=== PATIENT | male | born 1995 | race African-American/Black ===

== ENCOUNTER 2021-01-20 14:42 | Emergency (ER) | payer OTHER, SELFPAY ==
--- NOTE | ~2021-01-20 | XR_ITS ---
XR forearm LT 2V 01/20/2021 16:54 INDICATION: Dog bite left forearm PROCEDURE: 2 views left forearm COMPARISON: No prior studies for comparison. FINDINGS: Fracture, dislocation or subluxation is not identified. There is soft tissue gas along the radial aspect of the proximal forearm. No foreign bodies identified. The soft tissues appear within n ormal limits. No foreign bodies are identified. IMPRESSION: 1: NO ACUTE BONE OR JOINT ABNORMALITY IDENTIFIED. Reviewed, dictated and finalized at location B.
[2021-01-20 15:37] VITALS: BP 151/79; PULSE 92; RESP 16; TEMP 37.1; O2SAT 100
--- NOTE | 2021-01-20 16:57 | ED.GENADULT ---
HPI - General Adult General Chief complaint: Animal Bite Stated complaint: dog bite Time Seen by Provider: 01/20/21 16:36 Source: patient Mode of arrival: ambulatory Limitations: no limitations History of Present Illness HPI narrative: Patient is a 25-year-old male who presents with dog bites to the left proximal forearm he notes he was outside when his neighbors dog got out of the house and came towards him and bit him on the left forearm patient notes aching pain worse with activity and movement notes that he believes his immunizations to be up-to-date denies any radicular symptoms or paresthesias patient presents nondistressed injury occurred just prior to arrival Related Data Allergies Allergy/AdvReac Type Severity Reaction Status Date / Time No Known Allergies Allergy Verified 01/20/21 16:38 Review of Systems Review of Systems: CONSTITUTIONAL: Denies fever, chills SKIN: Positive for laceration and puncture wound the proximal left forearm MUSCULOSKELETAL: Positive for left forearm pain denies any decreased range of motion or strength NEUROLOGIC: Denies numbness, or weakness. Exam Narrative: GENERAL: Well-appearing, well-nourished, and in no acute distress. HEAD: Normocephalic, atraumatic. EYES: PERRLA and EOMI. ENT: Nares clear, no rhinorrhea or epistaxis. Mucous membranes moist. CHEST: Clear to auscultation. No respiratory distress. No wheezes rales or rhonchi HEART: Regular rate and rhythm. No murmur heard. Normal peripheral pulses. EXTREMITIES: Normal range of motion. No edema. SKIN: Warm, dry, no rash. Irregular 1 cm in length by diameter laceration proximal left forearm half centimeter laceration puncture wound proximal left forearm NEURO: No focal deficits. Alert and oriented x3. Neurovascularly intact. Capillary refill less than 2 seconds PSYCH: Normal mood and affect. Course Course Emergency Course: Patient in the room nondistressed wounds were cleaned with soap scrub antibiotic ointment nonadhesive 4 x 4 Coban placed will follow with primary care for further evaluation also given plastic surgery follow-up Vital Signs Vital signs: Vital Signs Temperature 98.7 F 01/20/21 15:37 Pulse Rate 92 01/20/21 15:37 Respiratory Rate 16 01/20/21 15:37 Blood Pressure 151/79 H 01/20/21 15:37 Pulse Oximetry 100 01/20/21 15:37 Temperature 98.7 F 01/20/21 15:37 Pulse Rate 92 01/20/21 15:37 Respiratory Rate 16 01/20/21 15:37 Blood Pressure 151/79 H 01/20/21 15:37 Pulse Oximetry 100 01/20/21 15:37 Procedures Other Procedure Procedure 1: Other Procedure: Discussed case with patient who agrees to follow with plastic surgery as wounds were cleaned with Shur-Clens scrub antibiotic ointment nonadhesive 4 x 4 and Coban placed post procedure Medical Decision Making MDM Narrative Medical decision making narrative: Patients injury or pain is consistent with musculoskeletal etiology. No signs of neurological or vascular compromise on exam. Compartments and tisues are soft without signs of compartment syndrome. Pain is felt appropriate for further evaluation on an outpatient basis. Vital Signs Vital Signs: Vital Signs Temperature 98.7 F 01/20/21 15:37 Pulse Rate 92 01/20/21 15:37 Respiratory Rate 16 01/20/21 15:37 Blood Pressure 151/79 H 01/20/21 15:37 Pulse Oximetry 100 01/20/21 15:37 Temperature 98.7 F 01/20/21 15:37 Pulse Rate 92 01/20/21 15:37 Respiratory Rate 16 01/20/21 15:37 Blood Pressure 151/79 H 01/20/21 15:37 Pulse Oximetry 100 01/20/21 15:37 Discharge Plan Discharge Clinical Impression: Forearm laceration, Dog bite Patient Disposition: Home, Self-Care Condition: Stable Instructions: Antibiotic Form, Animal Bite (ED) Additional Instructions: Follow up with primary care in the next 2-3 days for re-evaluation return if symptoms worsen or concerns, any increase in redness swelling pain or fever over 100.5 Clean wound with mi
[2021-01-20 18:40] VITALS: BP 131/83; PULSE 77; RESP 16; TEMP 36.9; O2SAT 100
== END 2021-01-20 18:42 | disposition home or self-care (01) ==
LOC: ANHED 18:04
PROVIDERS: Emergency Provider Family Medicine
DX: S51.852A Open bite of left forearm, initial encounter (principal); W54.0XXA Bitten by dog, initial encounter
CPT/HCPCS: 73090; 99283